=== PATIENT | female | born 1990 | race African-American/Black ===

== ENCOUNTER 2017-07-26 21:38 | Emergency (ER) | payer OTHER ==
--- NOTE | 2017-07-26 22:24 | PD ---
HPI Chief Complaint Stuffy nose Date Seen: Jul 26, 2017 Time Seen: 22:21 Travel History International Travel<30 Days: No Contact w/Intl Traveler<30Days: No Known Affected Area: No History of Present Illness HPI 27-year-old who is at 21 weeks 6 days comes in complaining of nasal congestion. Patient states that it started this afternoon and was accompanied initially by a little bit of dizziness which thereafter resolved. She has little bit of nausea due to the postnasal drip but otherwise no other symptoms. Patient denies cough, fever, or sore throat. She is feeling some movement and states she has had no antepartum complications. Weeks Gestation: 21 Para: 1 : 3 History Past Medical History Medical History: Denies Significant Hx Obstetric History Obstetric History Spontaneous vaginal delivery Past Surgical History Surgical History: No Previous Surgery Family History Family History: Negative Social History Alcohol Use: No Tobacco Use: No Substance Abuse: No Review of Systems Except as stated in HPI: all other systems reviewed are Neg Physical Exam Narrative GENERAL: Well-nourished, well-developed patient. SKIN: Warm and dry. HEAD: Normocephalic and atraumatic. EYES: No scleral icterus. No injection or drainage. ENT: No nasal drainage noted. Mucous membranes pink. Airway patent. NECK: Supple, trachea midline. No JVD. CARDIOVASCULAR: Regular rate and rhythm without murmurs, gallops, or rubs. RESPIRATORY: Breath sounds equal bilaterally. No accessory muscle use. ABDOMEN/GI: Abdomen soft, non-tender, bowel sounds present, no rebound, no guarding Gravid to [-20] weeks Fundal Height: [-] GENITOURINARY: Deferred External Genitalia: intact and normal in appearance BUS glands: [-] Cervix: [-] Dilatation: [-] Effacement: [-] Station: [-] Presentation: [-] Membranes: [intact or ruptured] Uterine Contractions: [-] FHT's: 148 by Doppler Category: [-] Baseline: [-] Reactive: [-] Variability: [-] Decels: [-] EXTREMITIES: No cyanosis or edema. BACK: Nontender without obvious deformity. No CVA tenderness. NEUROLOGICAL: Awake and alert. Motor and sensory grossly within normal limits. Five out of 5 muscle strength in all muscle groups. Normal speech. Data Data Vital Signs Reviewed: Yes [facility] Medical Record Reviewed: Yes Plan 27-year-old at 21-22 weeks gestation with nasal congestion Discussed [id number] treatments for symptomatic relief Hydration, acetaminophen as necessary Follow up with OB provider as scheduled Diagnosis Diagnosis: Primary Impression: 21 weeks gestation of Additional Impression: Nasal congestion related to Disposition: 01 DISCHARGE HOME Condition: Stable Patient Instructions: General Instructions, Nausea and Vomiting in ( ED), Movement (ED) Additional Instructions: DRINK PLENTY OF WATER DURING THE DAY, RETURN IF LEAKING FLUID, VAGINAL BLEEDING , STRONG CONTRACTIONS OR DECREASE IN MOVEMENT. ALSO RETURN IF SYMPTOMS WORSEN OR PERSIST. FOLLOW UP WITH YOUR OB DR IN AM AND KEEP ALL UPCOMING OB APPTS. Departure Forms: Tests/Procedures Jennifer Wright MD Jul 26, 2017 22:24
== END 2017-07-26 22:44 | disposition home or self-care (01) ==
LOC: HOBED 21:38
DX: O26.892 Other specified pregnancy related conditions, second trimester (principal); R09.81 Nasal congestion; Z3A.21 21 weeks gestation of pregnancy
CPT/HCPCS: 99282

== ENCOUNTER 2017-11-24 08:27 | Inpatient (IN) ==
[2017-11-24 09:18] VITALS: RESP 18
[2017-11-24] MEDS ORDERED: ceFAZolin 2 GM Premix Inj 2 GM/50 ML PIGGYBACK IV.SIG SCH (09:25)
[2017-11-24] MEDS ORDERED: Citric Acid/Sodium Citrate Liq 30 ML UDC PO SCH (09:30)
[2017-11-24 09:40] LABS: Baso % (Auto) 0.2 % (0.0-2.0); Eos # (Auto) 0.1 th/mm3 (0.0-0.4); Eos % (Auto) 1.5 % (0.0-4.0); Hematocrit 27.8 % (35.0-46.0); Hemoglobin 9.8 gm/dL (11.6-15.3); Lymph # (Auto) 1.3 th/mm3 (1.0-4.8); Lymph % (Auto) 13.7 % (9.0-44.0); Mean Corpuscular HGB Conc 35.3 % (32.0-36.0); Mean Corpuscular Hemoglobin 29.7 pg (27.0-34.0); Mean Corpuscular Volume 84.2 fL (80.0-100.0); Mean Platelet Volume 7.6 fL (7.0-11.0); Mono # (Auto) 0.7 th/mm3 (0.0-0.9); Mono % (Auto) 7.2 % (0.0-8.0); Neut # (Auto) 7.4 th/mm3 (1.8-7.7); Neut % (Auto) 77.4 % (16.0-70.0); Platelet Count 230 th/mm3 (150-450); Red Cell Distribution Width 16.5 % (11.6-17.2); White Blood Count 9.5 th/mm3 (4.0-11.0)
--- NOTE | 2017-11-24 10:33 | P.HPOB ---
History of Present Illness Primary Care Physician: No Primary Care Physician History of Present Illness: Patient is a 27-year-old G 3 P 1 at 39/1 who presents today for due to breech. She states she has had normal movement. Denies nausea, vomiting, fever, chills, abdominal pain, shortness of breath, changes in vision , headache, lightheadedness, dizziness, dysuria, hematuria, frequency, change in urine color/smell, change in bowel habits, large gushes of fluid. Notes some minor whitish discharge, normal for . No bloody discharge, abnormally colored or malodorous discharge. No other complaints today. History OB: Other than current breech, denies former or current complications Medical: Denies any medical problems Surgery: Denies any surgeries Family history Mother: Denies medical problems Father: Denies medical problems Social EtOH: Denies Tobacco: Denies Drugs: Denies - Inpatient Certification I certify that the inpatient services were ordered in accordance with Medicare regulations governing the order. This includes certification that hospital inpatient services are reasonable and necessary and in the case of services not specified as inpatient-only under 42 CFR 419.22(n), that they are appropriately provided as inpatient services in accordance to with the 2-midnight benchmark under 43 CFR 412.3(e) Estimated Total Length of Stay (Days): 2 Plans for Post Hospital Care: Home Review of Systems Constitutional: Denies body ache(s), Denies chills, Denies fever(s), Denies headache(s) Eyes: Denies blind spots, Denies blurry vision, Denies change in vision Ears, Nose, Mouth, and Throat: Denies bleeding gums, Denies mouth pain, Denies sore throat Cardiovascular: Denies chest pain, Denies fainting Respiratory: Denies cough, Denies pain with cough, Denies snoring, Denies stridor, Denies wheezing Gastrointestinal: Denies abdominal pain, Denies change in stools, Denies nausea , Denies vomiting Genitourinary: Denies abnormal vaginal bleeding, Denies urinary incontinence, Denies urinary urgency, Denies vaginal discharge, Denies vaginal odor Musculoskeletal: Denies abnormal walking, Denies muscle weakness Skin/Breast: Denies redness, Denies sores Neurologic: Denies abnormal movements, Denies behavioral changes, Denies frequent falls, Denies headache(s) Psychiatric: Denies anxiety, Denies confusion, Denies depression Endocrine: Denies cold intolerance, Denies excessive sweating Hematologic/Lymphatic: Denies easy bleeding, Denies easy bruising PMFSH - Travel History Recent Travel in the [place] Within the Last 8 Weeks: No Recent Travel Out of the Country Within the Last 8 Weeks: No Medications and Allergies Active Medications: Active Medications Citric Acid/Sodium Citrate (Sodium Citrate/Citric Acid Liq) 30 ml PO [employer]ABIT[employer] MANAGEMENT [employer] Stop: 11/28/17 09:29 Cefazolin Sodium/Dextrose (Ancef 2 Gm Premix Inj) 2 gm in 50 mls @ 100 mls/hr IV.SIG HABITAT MANAGEMENT COORDINATOR [facility] Stop: 11/28/17 09:24 Lactated Ringer's (Lr 1000 Ml Inj) 1,000 mls @ 150 mls/hr IV.CONT .Q6H40M [facility] Allergies Allergy/AdvReac Type Severity Reaction Status Date / Time No Known Allergies Allergy Verified 11/24/17 08:46 Home Medications Medication Instructions Recorded Confirmed Type 0-obxn-bclwl acid-om3 1 tab PO DAILY 11/24/17 11/24/17 History Exam Vital signs: Vital Signs 11/24/17 09:15 11/24/17 09:17 11/24/17 09:25 Temperature 98.8 F Pulse Rate 91 H 83 84 Respiratory Rate 18 Blood Pressure 132/76 129/74 Intake & Output 11/23/17 11/24/17 11/24/17 18:59 06:59 18:59 Weight 80.739 kg Other: Weight On Admission 80.739 kg Narrative: GENERAL: Well-nourished, well-developed patient. SKIN: Warm and dry. HEAD: Normocephalic and atraumatic. EYES: No scleral icterus. No injection or drainage. ENT: No nasal drainage noted. Mucous membranes pink. Airway patent. NECK: Supple, trachea midline. No JVD. CARDIOVASCULAR: Regular rate and rhythm without gallops, or rubs. 2/6 systolic murmur RESPIRATORY: Breath sounds equal bilaterally. No accessory muscle use. ABDOMEN/GI: Abdomen soft, non-tender, bowel sounds present, no rebound, no guarding FHT's: Category: 1 Baseline: 145 Reactive: yes Variability: Moderate Decels: None EXTREMITIES: No cyanosis or edema. BACK: Nontender without obvious deformity. No CVA tenderness. NEUROLOGICAL: Awake and alert. Motor and sensory grossly within normal limits. Five out of 5 muscle strength in all muscle groups. Normal speech. POC ultrasound: Fetus in vertex position Results - Labs CBC & Chem 7: 11/24/17 09:00 Labs: Laboratory Results - last 24 hr 11/24/17 11/24/17 09:00 09:00 WBC 9.5 RBC 3.30 L Hgb 9.8 L Hct 27.8 L MCV 84.2 MCH 29.7 MCHC 35.3 RDW 16.5 Plt Count 230 MPV 7.6 Neut % (Auto) 77.4 H Lymph % (Auto) 13.7 [place] % (Auto) 7.2 Eos % (Auto) 1.5 Baso % (Auto) 0.2 Neut # (Auto) 7.4 Lymph # (Auto) 1.3 [place] # (Auto) 0.7 Eos # (Auto) 0.1 Baso # (Auto) 0.0 WBC Differential . Differential Comment Auto diff final Blood Type B Positive Blood Type Recheck Required Antibody Screen Negative Caprini VTE Risk Assessment Caprini VTE Risk Assessment: No/Low Risk (score <= 1) Caprini Risk Assessment Model: Point Value = 1 Point Value = 2 Point Value = 3 Point Value = 5 Age 41-60 Minor surgery BMI > 25 kg/m2 Swollen legs Varicose veins or History of unexplained or recurrent spontaneous Oral contraceptives or hormone replacement Sepsis (< 1 month) Serious lung disease, including pneumonia (< 1 month) Abnormal pulmonary function Acute myocardial infarction Congestive heart failure (< 1 month) History of inflammatory bowel disease Medical patient at bed rest Age 61-74 Arthroscopic surgery Major open surgery (> 45 min) Laparoscopic surgery (> 45 min) Malignancy Confined to bed (> 72 hours) Immobilizing plaster cast Central venous access Age >= 75 History of VTE Family history of VTE Factor V Leiden Prothrombin [id number] Lupus anticoagulant Anticardiolipin antibodies Elevated serum homocysteine Heparin-induced thrombocytopenia Other congenital or acquired thrombophilia Stroke (< 1 month) Elective arthroplasty Hip, pelvis, or leg fracture Acute spinal cord injury (< 1 month) Prophylaxis Regimen: Total Risk Factor Score Risk Level Prophylaxis Regimen 0-1 Low Early ambulation 2 Moderate Order ONE of the following: *Sequential Compression Device (SCD) *Heparin 5000 units SQ BID 3-4 Higher Order ONE of the following medications: *Heparin 5000 units SQ TID *Enoxaparin/Lovenox 40 mg SQ daily (WT < 150 kg, CrCl > 30 mL/min) *Enoxaparin/Lovenox 30 mg SQ daily (WT < 150 kg, CrCl > 10-29 mL/min) *Enoxaparin/Lovenox 30 mg SQ BID (WT < 150 kg, CrCl > 30 mL/min) AND/OR *Sequential Compression Device (SCD) 5 or more Highest Order ONE of the following medications: *Heparin 5000 units SQ TID (Preferred with Epidurals) *Enoxaparin/Lovenox 40 mg SQ daily (WT < 150 kg, CrCl > 30 mL/min) *Enoxaparin/Lovenox 30 mg SQ daily (WT < 150 kg, CrCl > 10-29 mL/min) *Enoxaparin/Lovenox 30 mg SQ BID (WT < 150 kg, CrCl > 30 mL/min) AND *Sequential Compression Device (SCD) Assessment and Plan - Diagnosis (1) 39 weeks gestation of Code(s): Z3A.39 - 39 weeks gestation of Status: Acute (2) Breech presentation Code(s): O32.1XX0 - Maternal care for breech presentation, not applicable or unspecified Status: Acute - Plan 27-year-old at 39/1 presenting for secondary to breech. Fetus found to be vertex on ultrasound. -Vertex on ultrasound -Continue routine care, not necessary at this time
[2017-11-24 10:54] LABS: Bacteria,Urine Rare /hpf; Bilirubin,Urine Negative (Negative); Clarity,Urine Clear (Clear); Color,Urine Straw (Yellw/Straw); Glucose,Urine (UA) Negative (Negative); Leukocyte Esterase,Urine Trace (Negative); Mucus,Urine Few /lpf (Occasional); Nitrite,Urine Negative (Negative); Specific Gravity,Urine 1.008 (1.002-1.035); Squamous Epithelial Cell,Urine <1 /hpf (0-5)
[2017-11-24 10:58] LABS: Amphetamine Screen,Urine Neg (Neg); Barbiturate Screen,Urine Neg (Neg); Cannabinoid Screen,Urine Neg (Neg); Cocaine Screen,Urine Neg (Neg)
[2017-11-24 11:06] LABS: Opiate Screen,Urine Neg (Neg)
[2017-12-04 16:39] VITALS: BP 133/81; PULSE 101; TEMP 98.7
== END 2017-11-24 11:00 | disposition home or self-care (01) ==
LOC: H2E 08:27
PROVIDERS: ADMIT Obstetrics & Gynecology; ATTEND Obstetrics & Gynecology

== ENCOUNTER 2017-12-04 10:10 | Inpatient (IN) ==
[2017-12-04] MEDS ORDERED: fentaNYL Citrate Inj 100 MCG/2 ML Ampul IV.PUSH PRN ×4 (10:51→10:54)
[2017-12-04] MEDS ORDERED: Sod Chloride 0.9% Inj 1,000 ML IV.CONT PRN ×2 (10:51→10:54)
[2017-12-04] MEDS ORDERED: Naloxone Inj 0.4 MG/ML Vial IV.PUSH PRN ×3 (10:51→17:16)
[2017-12-04] MEDS ORDERED: Oxytocin 30 Units/500ml Premix 30 UNITS/500 ML BAG IV.SIG ONE ×2 (10:51→10:54)
[2017-12-04] MEDS ORDERED: Sodium Chlor 0.9% Inj 500 ML IV.SIG PRN ×2 (10:51→10:54)
--- NOTE | 2017-12-04 10:59 | ED ---
History of Present Illness Primary Care Physician: No Primary Care Physician Chief Complaint: contractions History of Present Illness: Patient is a 27-year-old at 40 weeks 4 days gestation who presents with contractions every 5 minutes. She has had an uncomplicated thus far and presented due to increasingly consistent contractions that cause severe pain, they have been increasing in rate and pain over the past 24 hours. She denies a maradiaga of fluid, but does state that she has had increased clear discharge for the past couple of days. She denies vaginal bleeding or malodorous discharge. She denies headache, nausea, emesis, chest pain, palpitations, shortness of breath, dysuria, and calf pain or tenderness. care: care for women -B+ blood type w/ negative AB screen -Trichomonal infection in june, tested for cure in July -GBS negative -No other abnormalities on labs -Baby had been breech through most of the , came in for scheduled CD and was found to be head down Past Medical: denies medical problems Surgical: denies surgical history Family: denies history of congenital anomalies or carolyne- issues Weeks Gestation:: 40 Para: 1 : 2 - Inpatient Certification I certify that the inpatient services were ordered in accordance with Medicare regulations governing the order. This includes certification that hospital inpatient services are reasonable and necessary and in the case of services not specified as inpatient-only under 42 CFR 419.22(n), that they are appropriately provided as inpatient services in accordance to with the 2-midnight benchmark under 43 CFR 412.3(e) Estimated Total Length of Stay (Days): 3 Plans for Post Hospital Care: Home Review of Systems All other systems reviewed negative except as stated in [facility] - History History Provided By: Patient - Medical / Surgical Hx Neg / Unobtainable Medical Problems Denied: Yes Surgical History: No Previous Surgery - Tobacco History Second Hand Smoke Exposure: No Smoking Status: Never smoker - Alcohol History How Often Do You Have a Drink Containing Alcohol: Never - Substance Use History Substance History: No History of Abuse Medications and Allergies Active Medications: Active Medications Citric Acid/Sodium Citrate (Sodium Citrate/Citric Acid Liq) 30 ml PO [employer]IOR [employer]MICAL [employer] [place] Stop: 12/08/17 10:59 Fentanyl Citrate (Fentanyl Inj) 50 mcg IV.PUSH Q1H PRN PRN Reason: Pain Scale 3 - 5 Fentanyl Citrate (Fentanyl Inj) 100 mcg IV.PUSH Q1H PRN PRN Reason: PAIN SCALE 6 TO 10 Lactated Ringer's (Lr 1000 Ml Inj) 1,000 mls @ 125 mls/hr IV.CONT .Q8H [place] Lactated Ringer's (Lr 1000 Ml Inj) 1,000 mls @ 3,000 mls/hr IV.SIG UNSCH PRN PRN Reason: compromise or epidural Sodium Chloride (Ns Inj) 500 mls @ 1,000 mls/hr IV.SIG UNSCH PRN PRN Reason: SEE LABEL COMMENTS Sodium Chloride (Ns Inj) 1,000 mls @ 100 mls/hr IV.CONT .Q10H PRN PRN Reason: SEE LABEL COMMENTS Oxytocin (Pitocin 30 Units/Ns 500 Ml Premix) 30 units in 500 mls @ 999 mls/hr IV.SIG BOLUS ONE Stop: 12/04/17 11:21 Lidocaine HCl (Xylocaine 1% Inj) 0.1 ml I-DERMAL PRN PRN PRN Reason: For IV start Stop: 12/07/17 10:50 Lidocaine HCl (Xylocaine 1% Inj) 10 ml INFILTRATN PRN PRN PRN Reason: For episiotomy repair Stop: 12/06/17 10:50 Mineral Oil (Muri-Lube Oil) 10 ml TOPICAL PRN PRN PRN Reason: PRN perineal massage Naloxone HCl (Narcan Inj) 0.1 mg IV.PUSH Q2M PRN PRN Reason: for opiate reversal Allergies Allergy/AdvReac Type Severity Reaction Status Date / Time No Known Allergies Allergy Verified 11/24/17 08:46 Home Medications Medication Instructions Recorded Confirmed Type 7-nagc-bndwl acid-om3 1 tab PO DAILY 11/24/17 12/04/17 History ferrous sulfate [Iron (ferrous See Label Instructions .ROUTE 12/04/17 12/04/17 History sulfate)] .COMPLEX Exam Vital signs: Vital Signs 12/04/17 10:21 Temperature 99.4 F Pulse Rate 104 H Respiratory Rate 19 Blood Pressure 148/72 H Narrative: General: Alert, well appearing, in no acute distress Skin: Warm and dry HEENT: Atraumatic. Moist mucus membranes Cardiac: Regular rate and rhythm without murmur Pulmonary: No increased work of breathing. Clear to auscultation bilaterally with good air movement. Abdominal: Non-tender. gravid uterus Extremities: 2+ pedal pulses, no edema, no calf tenderness Genitourinary: External Genitalia: intact and normal in appearance Cervix: 3 / 70% / -3 Membranes: intact Uterine Contractions: q4 minutes FHT's: Category: 2 Baseline: 145 Reactive: yes Variability: Moderate Decels: Mild variables, no heart rate below 110 Results - Labs CBC & Chem 7: 12/04/17 11:10 Assessment and Plan - Diagnosis (1) 40 weeks gestation of Code(s): Z3A.40 - 40 weeks gestation of Status: Acute - Plan Intrauterine at 40 weeks 4 days presenting with every 4 minutes contractions -Her contractions are very painful and she plans on having an epidural -History of breech presentation earlier in this , bedside ultrasound today showed head down position -Category 2 heart tracing due to mild, intermittent variable decelerations , variability is moderate and baseline is in the 140s. We will continue to monitor -Clear liquid diet -Admit to labor and delivery with expectant management -We will continue to monitor and augment labor if needed Discharge Plan - Discharge Condition Condition: Stable - Physicians Team Primary Care Provider: Primary Care Juliane Puckett Attending Provider: Carmelo Quick - Rxs /Orders / Referrals /Forms Prescriptions: No Action ferrous sulfate [Iron (ferrous sulfate)] 325 mg (65 mg iron) Tablet See Label Instructions .ROUTE .COMPLEX 4-kczg-hwdbz acid-om3 29-1-250 mg Combo Pack 1 tab PO DAILY Referrals: Patricia Sosa ARNP [Family Provider] - See Instructions Primary Care Juliane Puckett [Primary Care Provider] - See Instructions
[2017-12-04] MEDS ORDERED: Citric Acid/Sodium Citrate Liq 30 ML UDC PO SCH ×2 (11:00)
[2017-12-04 11:42] LABS: Baso % (Auto) 0.2 % (0.0-2.0); Eos # (Auto) 0.2 th/mm3 (0.0-0.4); Eos % (Auto) 1.6 % (0.0-4.0); Hematocrit 32.1 % (35.0-46.0); Hemoglobin 10.8 gm/dL (11.6-15.3); Lymph # (Auto) 0.9 th/mm3 (1.0-4.8); Lymph % (Auto) 9.1 % (9.0-44.0); Mean Corpuscular HGB Conc 33.7 % (32.0-36.0); Mean Corpuscular Hemoglobin 28.6 pg (27.0-34.0); Mean Platelet Volume 7.7 fL (7.0-11.0); Mono # (Auto) 0.6 th/mm3 (0.0-0.9); Mono % (Auto) 6.4 % (0.0-8.0); Neut # (Auto) 8.3 th/mm3 (1.8-7.7); Neut % (Auto) 82.7 % (16.0-70.0); Platelet Count 234 th/mm3 (150-450); Red Blood Count 3.77 mil/mm3 (4.00-5.30); Red Cell Distribution Width 16.8 % (11.6-17.2)
[2017-12-04] MEDS ORDERED: fentaNYL 2MCG-Bupiv 0.125% Epi 150 ML EPIDURAL ONE (11:50)
[2017-12-04 12:17] LABS: Amorphous Sediment,Urine Moderate /hpf; Bacteria,Urine Few /hpf; Bilirubin,Urine Negative (Negative); Clarity,Urine Hazy (Clear); Color,Urine Amber (Yellw/Straw); Glucose,Urine (UA) Negative (Negative); Leukocyte Esterase,Urine Large (Negative); Mucus,Urine Few /lpf (Occasional); Nitrite,Urine Negative (Negative); Specific Gravity,Urine 1.011 (1.002-1.035); Squamous Epithelial Cell,Urine 26 /hpf (0-5)
[2017-12-04 12:37] LABS: Amphetamine Urine With Conf Neg (Neg); Benzodiazepine Urine With Conf Neg (Neg)
[2017-12-04] MEDS ORDERED: fentaNYL 2MCG-Bupiv 0.125% Epi 150 ML EPIDURAL PRN (13:00)
[2017-12-04] MEDS ORDERED: fentaNYL Citrate Inj 100 MCG/2 ML Ampul EPIDURAL ONE (13:00)
[2017-12-04] MEDS ORDERED: Diphtheria/Tetanus/Pertussis Vaccine Inj 0.5 ML Syringe IM ONE (16:00)
[2017-12-04] MEDS ORDERED: Measles/Mumps/Rubella Vaccine Inj 0.5 ML Vial SQ ONE (16:00)
[2017-12-04] MEDS ORDERED: Lidocaine 1% Inj 50 ML Vial ONE (16:43)
--- NOTE | 2017-12-04 17:14 | P.OBDELI ---
Additional Information: Weeks Gestation: 40w 4 days Medical Induction of Labor: No Labor Augmentation: AROM Anesthesia: Epidural Presentation: Vertex Nuchal Cord: X1, easily reduced Shoulder Dystocia: No Delayed Cord Clampin seconds Placenta: Intact Episiotomy: None Laceration: Superficial right periurethral, and superficial right vaginal Repair: none necessary Estimated Blood Loss: 100cc Delivery Time: 1702 Delivery Date: 12/04/17 : Male Weight: 3220 (1 min): 8 (5 min): 9 Supervised by: Dr. Quick and Dr. Pierre Due to bleeding post-delivery the lower uterine segment was explored and a few small clots were removed. Approximally 50cc of blood and blood clots. 0.2 mg of Methergine IM was given.
[2017-12-04] MEDS ORDERED: Bisacodyl 10 MG Supp RECTAL PRN (17:16)
[2017-12-04] MEDS ORDERED: Benzocaine 20% Top Spray 60 ML Can TOPICAL PRN (17:16)
[2017-12-04] MEDS ORDERED: Acetaminophen 325 MG Tablet PO PRN (17:16)
[2017-12-04] MEDS ORDERED: Oxytocin 30 Units/500ml Premix 30 UNITS/500 ML BAG IV.CONT PRN (17:16)
[2017-12-04] MEDS ORDERED: Witch Hazel 50%/Glyderin 12.5% 40 Pad Jar RECTAL PRN (17:16)
[2017-12-04] MEDS ORDERED: Methylergonovine Inj 0.2 MG/ML Ampul IM ONE (17:22)
[2017-12-04] MEDS ORDERED: Methylergonovine Inj 0.2 MG/ML Ampul ONE (17:25)
[2017-12-04] MEDS ORDERED: Zolpidem Tartrate 5 MG Tablet PO PRN (21:00)
[2017-12-05] MEDS: Senna/Docusate Sodium 8.6/50 MG Tablet PO SCH ×2 (00:30→10:40)
--- NOTE | 2017-12-05 08:11 | P.PNOB ---
Subjective Post day: 1 Interval history: day # 1 Afebrile with stable vitals overnight. Decreased lochia. Denies dysuria. No breast pain. Appetite good. No nausea or vomiting. Ambulating well. Denies calf pain or shortness of breath. Otherwise, she is doing well this morning and has no other complaints. Objective Vital Signs/I&O: Vital Signs 12/04/17 10:21 12/04/17 11:26 12/04/17 11:30 Temperature 99.4 F 98.5 F Pulse Rate 104 H 94 H Respiratory Rate 19 18 Blood Pressure 148/72 H 134/78 12/04/17 11:50 12/04/17 12:06 12/04/17 12:30 Temperature Pulse Rate 92 H 103 H 109 H Respiratory Rate Blood Pressure 135/75 130/57 L 12/04/17 12:42 12/04/17 12:45 12/04/17 13:21 Temperature Pulse Rate 105 H 90 90 Respiratory Rate Blood Pressure 137/80 129/77 129/77 12/04/17 13:25 12/04/17 14:00 Temperature Pulse Rate 102 H 104 H Respiratory Rate 18 Blood Pressure 115/65 115/66 Intake & Output 12/04/17 12/05/17 12/05/17 18:59 06:59 18:59 Intake Total 1000 / 1000 Balance 1000 / 1000 Weight 80 kg Intake: IV 1000 / 1000 LR 1000 mL Inj 1,000 ML @ 125 1000 / 1000 mls/hr IV.CONT .Q8H [facility] Rx#: [id number] Other: Weight On Admission 80 kg Result Diagrams: 12/04/17 11:10 Objective Remarks: General: Alert, well appearing, in no acute distress Skin: Warm and dry HEENT: Atraumatic. Moist mucus membranes Cardiac: Regular rate and rhythm without murmur Pulmonary: No increased work of breathing. Clear to auscultation bilaterally with good air movement. Abdominal: Non-tender, + bowel sounds, uterus firm and below the umbilicus Extremities: 2+ pedal pulses, no edema, no calf tenderness Medications and IVs: Active Medications Acetaminophen (Tylenol) 650 mg PO Q4H PRN PRN Reason: PAIN SCALE 1 TO 2 Al Hydroxide/Mg Hydroxide (Milk Of Magnesia Liq) 30 ml PO Q12H PRN PRN Reason: Mild Constipation Benzocaine (Americaine 20% [place]) 1 spray TOPICAL Q4H PRN PRN Reason: For Perineum Discomfort Bisacodyl (Dulcolax Supp) 10 mg RECTAL DAILY PRN PRN Reason: SEVERE CONSITIPATION Ephedrine Sulfate (Ephedrine/Ns Syringe) 10 mg IV.PUSH UNSCH PRN PRN Reason: SEE LABEL COMMENTS Stop: 12/05/17 13:00 Oxytocin (Pitocin 30 Units/Ns 500 Ml Premix) 30 units in 500 mls @ 100 mls/hr IV.CONT UNSCH PRN PRN Reason: Heavy bleeding Last Admin: 12/04/17 17:53 Dose: 100 mls/hr Ibuprofen (Motrin) 800 mg PO Q8H PRN PRN Reason: For Cramping Last Admin: 12/05/17 00:28 Dose: 800 mg Lactulose (Lactulose Liq) 30 ml PO DAILY PRN PRN Reason: SEVERE CONSITIPATION Miscellaneous Information (Misc Information) 1 each OTHER UNSCH PRN PRN Reason: SEE LABEL COMMENTS Stop: 12/05/17 13:00 Miscellaneous Information (Misc Information) 1 each OTHER UNSCH PRN PRN Reason: SEE LABEL COMMENTS Stop: 12/05/17 13:00 Naloxone HCl (Narcan Inj) 0.1 mg IV.PUSH Q2M PRN PRN Reason: for opiate reversal Ondansetron HCl (Zofran Odt) 4 mg PO Q6H PRN PRN Reason: NAUSEA OR VOMITING Senna/Docusate Sodium (Genna-Colace) 1 tab PO BID [facility] Last Admin: 12/05/17 00:30 Dose: Not Given Sennosides (Senokot) 17.2 mg PO Q12H PRN PRN Reason: Moderate Constipation Sodium Chloride (Ns Flush) 2 ml IV.FLUSH BID [facility] Last Admin: 12/05/17 00:31 Dose: 2 ml Sodium Chloride (Ns Flush) 2 ml IV.FLUSH PRN PRN PRN Reason: FLUSH AFTER USING IV ACCESS Witch Jacquelyn/Glycerin (Tucks Pads) 1 applicatio RECTAL QID PRN PRN Reason: HEMORRHOIDS Zolpidem Tartrate (Ambien) 5 mg PO HS PRN PRN Reason: SLEEP Assessment and Plan - Diagnosis (1) 40 weeks gestation of Code(s): Z3A.40 - 40 weeks gestation of Status: Acute (2) Vaginal delivery Code(s): O80 - Encounter for full-term uncomplicated delivery Status: Acute - Plan 27 year old who is PPD#1 s/p vaginal delivery at 40w and 4d -Continue routine care. -Motrin /APAP as needed for pain. -Encouraged OOB. Advised pelvic rest for 6 wks. - control: plan on IUD as outpatient -Anticipate DC home tomorrow Care was discussed with: Dr. Quick
[2017-12-06] MEDS: Senna/Docusate Sodium 8.6/50 MG Tablet PO SCH ×2 (01:00→09:23)
--- NOTE | 2017-12-06 09:53 | P.PNOB ---
Subjective Post day: 2 Interval history: day #2 AFVSS overnight. Decreased lochia. Denies dysuria. No breast pain. Appetite good. No nausea or vomiting. Ambulating well. Denies calf pain or shortness of breath. Otherwise, she is doing well this morning and has no other complaints. Objective Vital Signs/I&O: Vital Signs 12/05/17 10:00 12/05/17 20:00 12/06/17 07:38 Temperature 98.0 F 98.7 F 98.0 F Pulse Rate 86 88 82 Respiratory Rate 21 20 16 Blood Pressure 143/79 H 109/65 134/70 Result Diagrams: 12/04/17 11:10 Objective Remarks: GENERAL: Well-nourished, well-developed patient. CARDIOVASCULAR: Regular rate and rhythm without murmurs, gallops, or rubs. RESPIRATORY: Breath sounds equal bilaterally. No accessory muscle use. ABDOMEN/GI: Abdomen soft, non-tender. Fundus: Firm, non-tender at umbilicus. GENITOURINARY: Light to moderate bleeding. EXTREMITIES: No cyanosis or edema, non-tender, without signs of DVT. Medications and IVs: Active Medications Acetaminophen (Tylenol) 650 mg PO Q4H PRN PRN Reason: PAIN SCALE 1 TO 2 Al Hydroxide/Mg Hydroxide (Milk Of Magnesia Liq) 30 ml PO Q12H PRN PRN Reason: Mild Constipation Benzocaine (Americaine 20% Top [place]) 1 spray TOPICAL Q4H PRN PRN Reason: For Perineum Discomfort Bisacodyl (Dulcolax Supp) 10 mg RECTAL DAILY PRN PRN Reason: SEVERE CONSITIPATION Oxytocin (Pitocin 30 Units/Ns 500 Ml Premix) 30 units in 500 mls @ 100 mls/hr IV.CONT UNSCH PRN PRN Reason: Heavy bleeding Last Admin: 12/04/17 17:53 Dose: 100 mls/hr Ibuprofen (Motrin) 800 mg PO Q8H PRN PRN Reason: For Cramping Last Admin: 12/06/17 09:22 Dose: 800 mg Lactulose (Lactulose Liq) 30 ml PO DAILY PRN PRN Reason: SEVERE CONSITIPATION Naloxone HCl (Narcan Inj) 0.1 mg IV.PUSH Q2M PRN PRN Reason: for opiate reversal Ondansetron HCl (Zofran Odt) 4 mg PO Q6H PRN PRN Reason: NAUSEA OR VOMITING Senna/Docusate Sodium (Genna-Colace) 1 tab PO BID [facility] Last Admin: 12/06/17 09:23 Dose: 1 tab Sennosides (Senokot) 17.2 mg PO Q12H PRN PRN Reason: Moderate Constipation Sodium Chloride (Ns Flush) 2 ml IV.FLUSH BID [facility] Last Admin: 12/06/17 01:00 Dose: Not Given Sodium Chloride (Ns Flush) 2 ml IV.FLUSH PRN PRN PRN Reason: FLUSH AFTER USING IV ACCESS Witch Jacquelyn/Glycerin (Tucks Pads) 1 applicatio RECTAL QID PRN PRN Reason: HEMORRHOIDS Zolpidem Tartrate (Ambien) 5 mg PO HS PRN PRN Reason: SLEEP Assessment and Plan - Diagnosis (1) 40 weeks gestation of Code(s): Z3A.40 - 40 weeks gestation of Status: Acute (2) Vaginal delivery Code(s): O80 - Encounter for full-term uncomplicated delivery Status: Acute - Plan 27y/o female who is PPD#2 s/p vaginal delivery. -Continue routine care. -Motrin PRN pain. -Encouraged OOB. Advised pelvic rest for 6 wks. -D/c likely today. aydee Beebe
== END 2017-12-06 17:22 | disposition home or self-care (01) ==
LOC: HOBED 10:10 → H2E 10:47 → H1EA 19:41
PROVIDERS: ADMIT Obstetrics & Gynecology Maternal & Fetal Medicine; ATTEND Obstetrics & Gynecology Maternal & Fetal Medicine